=== PATIENT | female | born 1940 | race Caucasian/White ===

== ENCOUNTER 2021-07-27 15:24 | Day surgery (SDCO) | payer OTHER ==
[~2021-07-27] VITALS: Ht 165.1 cm; Wt 94.8 kg
[~2021-07-27 15:24] MED LIST: AUGMENTIN 875-1 EACH PO; BREO ELLIPTA 11 EACH INH; BUMEX1 MG PO; CLARITIN10 MG PO; COUMADIN3 MG PO; COUMADIN5 MG PO; COUMADIN6 MG PO; DIGOXIN125 MCG PO; EZETIMIBE10 MG PO; FAMOTIDINE20 MG PO; FENOFIBRIC ACID45 MG PO; FEOSOL325 MG PO; FLUTICASONE PRO16 GM INH; K-DUR20 MEQ PO; LIDOCAINE 5% P1 EACH TOP; MAG-OXIDE 400M400 MG PO; MICON-GUARD 2% TOP; MUCINEX 600MG600 MG PO; NORCO 5-325 TA1 EACH PO; PERCOCET 5-3251 EACH PO; REMOVE; VENTOLIN HFA IN18 GM INH
[2021-07-27 16:02] LABS: BASOPHIL 0.4 % (0-2); EOSINOPHIL 0.1 % (0-7); HCT 37.3 % (37.0-47.0); HGB 11.7 g/dl (12.5-16.0); LYMPHOCYTE 3.6 % (15-48); MCH 27.3 pg (25.0-31.0); MCHC 31.4 g/dL (32.0-36.0); MCV 87.1 fL (78.0-100.0); MONOCYTE 9.7 % (0-12); MPV 11.6 fL (6.0-9.5); NEUTROPHIL 85.6 % (41-80); NRBC 0; PLT 195 K/uL (150-400); RBC 4.28 M/uL (4.20-5.40); RDW 16.2 % (11.5-14.0); WBC 16.1 K/uL (4.0-10.5)
[2021-07-27 16:18] LABS: ALBUMIN 3.7 g/dL (3.4-5.0); BILIRUBIN - TOTAL 1.8 mg/dL (0.2-1.0); CREATININE 0.6 mg/dL (0.51-0.95); GLOBULIN (CALCULATION) 4.1 g/dL; TOTAL PROTEIN 7.8 g/dL (6.4-8.2)
[2021-07-27 17:42] LABS: CORONAVIRUS 2019 SARS-COV-2 NEGATIVE (NEGATIVE); INFLUENZA A NAA NEGATIVE (NEGATIVE)
[2021-07-27 18:43] LABS: INR 2.16 (0.9-1.2); PROTHROMBIN TIME 23.2 SECONDS (11.8-13.4)
[2021-07-27] MEDS ORDERED: DIAZEPAM 5MG TAB5 MG PO (21:06)
[2021-07-27] MEDS ORDERED: WARFARIN SODIUM1 MG PO (21:07)
[2021-07-27] MEDS ORDERED: WARFARIN SODIUM3 MG PO (21:07)
[2021-07-27] MEDS ORDERED: POTASSIUM20 MEQ/11 PO (21:08)
[2021-07-27] MEDS ORDERED: HYDROCODON-ACE1 EAC6 PO (21:09)
[2021-07-28 03:50] LABS: BASOPHIL 0.2 % (0-2); EOSINOPHIL 0 % (0-7); HCT 35.7 % (37.0-47.0); HGB 11.2 g/dl (12.5-16.0); LYMPHOCYTE 2.7 % (15-48); MCH 27.3 pg (25.0-31.0); MCHC 31.4 g/dL (32.0-36.0); MCV 87.1 fL (78.0-100.0); MONOCYTE 3.2 % (0-12); MPV 11.4 fL (6.0-9.5); NRBC 0; PLT 159 K/uL (150-400); RDW 16.3 % (11.5-14.0); WBC 12.2 K/uL (4.0-10.5)
[2021-07-28 04:00] LABS: NEUTROPHIL 93.3 % (41-80)
[2021-07-28 04:02] LABS: INR 2.49 (0.9-1.2)
[2021-07-28 04:16] LABS: BUN/CREAT RATIO (CALC) 19.7 RATIO; CREATININE 0.66 mg/dL (0.51-0.95); MAGNESIUM 1.8 mg/dL (1.8-2.4); POTASSIUM 4.1 mmol/L (3.5-5.1)
[2021-07-29 06:26] LABS: BASOPHIL 0 % (0-2); EOSINOPHIL 0 % (0-7); HCT 34.4 % (37.0-47.0); HGB 11.2 g/dl (12.5-16.0); LYMPHOCYTE 4.3 % (15-48); MCH 27.9 pg (25.0-31.0); MCHC 32.6 g/dL (32.0-36.0); MCV 85.8 fL (78.0-100.0); MONOCYTE 9.8 % (0-12); MPV 11.9 fL (6.0-9.5); NEUTROPHIL 85.3 % (41-80); NRBC 0; PLT 185 K/uL (150-400); RBC 4.01 M/uL (4.20-5.40); RDW 16.2 % (11.5-14.0); WBC 9.6 K/uL (4.0-10.5)
[2021-07-29 06:27] LABS: INR 2.7 (0.9-1.2); PROTHROMBIN TIME 27.7 SECONDS (11.8-13.4)
--- NOTE | 2021-07-29 10:06 | NUR ---
07/29/21 Ms. Car lives alone. She has an old inoperable hospital bed, rw, rollator, old 3in1 without a bucket, 02 at 2 L, and portable tanks from [facility]. [facility] provides homemaking 2 x week. - Ms. Car has requested [facility], new 3in1, hospital bed, and wc, and financial assistance with the hospital bill. - Referrals have been made to [facility] for PT/ nursing, [facility] for requested DME, and Gisella Soriano, Manager Non Profit.
[2021-07-30] MEDS ORDERED: CEFDINIR300 MG PO (07:39)
[2021-07-30] MEDS ORDERED: DOXYCYCLINE MO100 MG PO (07:39)
[2021-07-30] MEDS ORDERED: PREDNISONE 20MG20 MG PO (07:39)
[2021-07-30] MEDS ORDERED: DUONEB 2.5-0.5M1 AMP NEB (07:39)
--- NOTE | 2021-07-30 14:43 | NUR ---
07/30/21 [facility] was notified of discharge.
== END 2021-07-30 11:30 | disposition home health service (06) ==
LOC: FER 15:24 → FMS 18:47 → FER 19:45 → FMS 07-30 11:30
PROVIDERS: Allergy & Immunology Allergy; Emergency Medicine; Nurse Practitioner; ADMIT Internal Medicine
DX: A41.9 Sepsis, unspecified organism (principal); J18.8 Other pneumonia, unspecified organism; R09.02 Hypoxemia; J44.1 Chronic obstructive pulmonary disease with (acute) exacerbation; I50.9 Heart failure, unspecified; I27.20 Pulmonary hypertension, unspecified; R60.0 Localized edema; I35.0 Nonrheumatic aortic (valve) stenosis; I48.91 Unspecified atrial fibrillation; E87.3 Alkalosis; I25.10 Atherosclerotic heart disease of native coronary artery without angina pectoris; K21.9 Gastro-esophageal reflux disease without esophagitis; M19.90 Unspecified osteoarthritis, unspecified site; Z99.81 Dependence on supplemental oxygen; Z95.2 Presence of prosthetic heart valve; Z20.822 Contact with and (suspected) exposure to COVID-19; Z79.01 Long term (current) use of anticoagulants; Z95.0 Presence of cardiac pacemaker; Z82.5 Family history of asthma and other chronic lower respiratory diseases; Z87.891 Personal history of nicotine dependence
CPT/HCPCS: 36415; 36600; 71045; 71275; 80048; 80053; 80162; 82803; 83605; 83735; 83880; 84145; 84484; 85025; 85379; 85610; 87040; 87070; 87077; 87186; 87205; 93005; 94010; 94640; 94667; 94668; 94760; 97110; 97162; 97166; 97530-GP; 97535; A4216; G0378; J2543; J2930; J3360; J3370; J7040; J7050; J7512; Q9967; U0002